=== PATIENT | female | born 1980 | race Caucasian/White ===

== ENCOUNTER 2017-07-06 22:10 | Emergency (ER) | payer OTHER ==
[~2017-07-06] VITALS: Ht 167.6 cm; Wt 81.2 kg
[2017-07-07 01:46] LABS: microscopic required? YES; urine erythrocyte 1+ (NEGATIVE)
[2017-07-07 01:54] LABS: AMPHETAMINE QUAL UR POSITIVE (NEG <=1000)
[2017-07-07 03:11] VITALS: BP 180/128
== END 2017-07-07 02:50 | disposition home or self-care (01) ==
LOC: ED 22:10
PROVIDERS: Emergency Medicine
DX: L03.116 Cellulitis of left lower limb (principal); L03.115 Cellulitis of right lower limb; F15.10 Other stimulant abuse, uncomplicated; I10 Essential (primary) hypertension
CPT/HCPCS: 90715; J0690; J1885

== ENCOUNTER 2018-01-16 11:29 | Emergency (ER) | payer OTHER | END 2018-01-16 12:44 | disposition other institution (70) | LOC: ED 11:29 | DX: Z02.89 Encounter for other administrative examinations (principal) ==

== ENCOUNTER 2018-01-16 11:29 | Emergency (ER) | payer OTHER ==
[~2018-01-16] VITALS: Ht 167.6 cm; Wt 70.3 kg
[2018-01-16 11:32] VITALS: Ht 167.6 cm; Wt 70.3 kg
[2018-01-16 12:44] VITALS: BP 154/104
== END 2018-01-16 12:44 | disposition other institution (70) ==
LOC: ED 11:29
DX: Z02.89 Encounter for other administrative examinations (principal); I10 Essential (primary) hypertension; J45.909 Unspecified asthma, uncomplicated

== ENCOUNTER 2018-04-18 14:15 | Emergency (ER) | payer OTHER ==
[2018-04-19] MEDS ORDERED: HYDROCHLOROTH12.5 M3 PO (15:49)
[2018-04-19] MEDS ORDERED: LOP100 PO ×2 (15:50→15:54)
[2018-04-19] MEDS ORDERED: LOPERAMIDE HCL2 MG PO (15:53)
[2018-04-19] MEDS ORDERED: HYDROCHLOROTH12.5 M2 PO (15:54)
== END 2018-04-18 16:32 | disposition other institution (70) ==
LOC: ED 14:15
DX: Z02.89 Encounter for other administrative examinations (principal)

== ENCOUNTER 2018-04-18 14:15 | Emergency (ER) | payer OTHER ==
[~2018-04-18] VITALS: Ht 167.6 cm; Wt 59.0 kg
[2018-04-18 14:17] VITALS: Ht 167.6 cm; Wt 59.0 kg
[2018-04-18 15:36] LABS: PLATELET COUNT 305 x10^3mcL (130-400)
[2018-04-18 15:49] LABS: CALCIUM 9.2 mg/dL (8.5-10.1); CARBON DIOXIDE 27.2 mmol/L (21-32); CHLORIDE SERUM 103 mmol/L (98-107); CREATININE SERUM 0.9 mg/dL (0.6-1.0); GFR1 > 60 mL/min; GLUCOSE SERUM 97 mg/dL (74-106); POTASSIUM SERUM 3.3 mmol/L (3.5-5.1); SODIUM SERUM 142 mmol/L (136-145)
[2018-04-18 16:15] LABS: RED CELL DISTRIBUTION WIDTH 15.5 % (11.5-14.5)
[2018-04-18 16:32] VITALS: BP 150/98
[2018-04-19] MEDS ORDERED: HYDROCHLOROTH12.5 M3 PO (15:49)
[2018-04-19] MEDS ORDERED: LOP100 PO ×2 (15:50→15:54)
[2018-04-19] MEDS ORDERED: LOPERAMIDE HCL2 MG PO (15:53)
[2018-04-19] MEDS ORDERED: HYDROCHLOROTH12.5 M2 PO (15:54)
== END 2018-04-18 16:32 | disposition other institution (70) ==
LOC: ED 14:15
PROVIDERS: Emergency Medicine
DX: I10 Essential (primary) hypertension (principal); J45.909 Unspecified asthma, uncomplicated
CPT/HCPCS: J3490

== ENCOUNTER 2018-10-04 18:10 | Emergency (ER) | payer OTHER ==
[~2018-10-04] VITALS: Ht 167.6 cm; Wt 82.1 kg
[~2018-10-04 18:10] MED LIST: HYDROCHLOROTH12.5 M2 PO; HYDROCHLOROTH12.5 M3 PO; LOP100 PO; LOPERAMIDE HCL2 MG PO
[2018-10-04 18:15] VITALS: BP 194/118; Ht 167.6 cm; Wt 82.1 kg
== END 2018-10-04 18:50 | disposition left against medical advice (07) ==
LOC: ED 18:10
DX: Z53.21 Procedure and treatment not carried out due to patient leaving prior to being seen by health care provider (principal)